=== PATIENT | male | born 1975 | race American Indian/Alaskan Native ===

== ENCOUNTER 2017-04-09 18:00 | Day surgery (SDC) | payer OTHER ==
--- NOTE | 2017-04-09 17:22 | Emergency Department Report ---
HPI - General Chief Complaint: Medical Clearance Time Seen by Provider: 04/09/17 17:04 - HPI HPI: 42-year-old male presents to the emergency Department from the office of his bariatric surgeon, Dr. Wolf, in order to go to the operating room to reverse or fix his lap band surgery. The patient has been dealing with a few weeks of progressively worsening abdominal discomfort, nausea, vomiting. His point where he cannot keep down any food or liquid. Apparently the patient went to see Dr Wolf today and had an x-ray done and an evaluation and was found to have the lap band out of place. Patient has history of hypertension. He denies any fever, chest pain, shortness of breath. He did not take anything and was not given anything for his symptoms prior to presentation. ED Past Medical Hx - Past Medical History Hx Hypertension: Yes Additional medical history: HX OF PE - Surgical History Hx Cholecystectomy: Yes Additional Surgical History: LAP BAND ANKLE - Social History Smoking Status: Never Smoker Substance Use Type: Alcohol ED Review of Systems ROS: Stated complaint: PRE OP EVALUATION Other details as noted in HPI Comment: All other systems reviewed and negative Constitutional: denies: chills, fever Eyes: denies: eye pain, eye discharge, vision change ENT: denies: ear pain, throat pain Respiratory: denies: cough, shortness of breath, wheezing Cardiovascular: denies: chest pain, palpitations Gastrointestinal: abdominal pain, nausea, vomiting Genitourinary: denies: urgency, dysuria Musculoskeletal: denies: back pain, joint swelling, arthralgia Skin: denies: rash, lesions Neurological: denies: headache, weakness, paresthesias Physical Exam - Physical Exam Physical Exam: GENERAL: The patient is well-developed well-nourished. HENT: Normocephalic. Atraumatic. Patient has moist mucous membranes. EYES: Extraocular motions are intact. Pupils equal reactive to light bilaterally. NECK: Supple. Trachea is midline. CHEST/LUNGS: Clear to auscultation. There is no respiratory distress noted. HEART/CARDIOVASCULAR: Regular. There is no tachycardia. There is no murmur. ABDOMEN: Abdomen is soft. No tenderness to palpation. No guarding. Patient has normal bowel sounds. Obese habitus. SKIN: Skin is warm and dry. NEURO: The patient is awake, alert, and oriented. The patient is cooperative. The patient has no focal neurologic deficits. The patient has normal speech. MUSCULOSKELETAL: There is no tenderness or deformity. There is no limitation range of motion. There is no evidence of acute injury. ED Course - Consultations Consultation #1: 04/09/17 17:[address] Wolf who plans to take him to the operating room and then will either discharge him postop or potentially will keep him overnight to his service. He agrees with the CBC and BMP and IV fluid but otherwise does not require anything else for a preop workup. ED Medical Decision Making - Lab Data Result diagrams: 04/09/17 17:15 04/09/17 17:15 - Medical Decision Making The CBC and metabolic panel are unremarkable. Vital signs stable. The patient is going to the operating room now. Critical Care Time: No Critical care attestation.: If time is entered above; I have spent that time in minutes in the direct care of this critically ill patient, excluding procedure time. ED Disposition Clinical Impression: Pre-op evaluation Nausea & vomiting Qualifiers: Vomiting type: unspecified Vomiting Intractability: non-intractable Qualified Code(s): R11.2 - Nausea with vomiting, unspecified Abdominal pain Qualifiers: Abdominal location: unspecified location Qualified Code(s): R10.9 - Unspecified abdominal pain Disposition: 09 OP ADMIT IP TO THIS HOSP Is pt being admited?: Yes Condition: Stable Referrals: PRIMARY CARE, [Primary Care Provider] - 3-5 Days Time of Disposition: 17:58
[2017-04-09 17:45] LABS: BUN/Creatinine Ratio 15; Blood Urea Nitrogen 18 mg/dL (9-20); Calcium 9.2 mg/dL (8.4-10.2); Hematocrit 37.7 % (35.5-45.6); Hemoglobin 12.7 gm/dl (11.8-15.2); Hemolysis Index 6; Mean Corpuscular HGB Conc 34 % (32-34); Mean Corpuscular Hemoglobin 32 pg (28-32); Mean Corpuscular Volume 94 fl (84-94); Platelet Count 217 K/mm3 (140-440); Red Blood Count 4.02 M/mm3 (3.65-5.03); Red Cell Distribution Width 12.9 % (13.2-15.2)
[~2017-04-09 18:00] MED LIST: DILAUDID ONE; DIPRIVAN 10 MG/ML IV ONE; NACL 0.9% 1000 ML 1,000 ML IV ONE; QUELICIN ONE; XYLOCAINE MPF 2% ONE; ZEMURON IV ONE
[2017-04-09] MEDS ORDERED: PEPCID IV ONE (18:08)
[2017-04-09] MEDS ORDERED: REGLAN ONE (18:09)
--- NOTE | 2017-04-09 18:23 | Anesthesia Consultation ---
Anesthesia Consult and Med Hx Date of service: 04/09/17 - Airway Anesthetic Teeth Evaluation: Good ROM Head & Neck: Adequate Mental/Hyoid Distance: Adequate Mallampati Class: Class III Intubation Access Assessment: Possibly Difficult - Pulmonary Exam CTA: Yes - Cardiac Exam Cardiac Exam: RRR - Pre-Operative Health Status ASA Pre-Surgery Classification: ASA3 Proposed Anesthetic Plan: General - Pulmonary Hx Smoking: Yes - Cardiovascular System Hx Hypertension: Yes
--- NOTE | 2017-04-09 18:23 | Anesthesia Day of Surgery ---
Anesthesia Day of Surgery - Day of Surgery Patient Examined: Yes Patient H&P Reviewed: Yes Patient is NPO: Yes
[2017-04-09] MEDS ORDERED: ZOFRAN IV PRN (18:25)
[2017-04-09] MEDS ORDERED: SUBLIMAZE IV PRN (18:25)
[2017-04-09] MEDS ORDERED: ANCEF/STERILE WATER 2 GM/20 ML 2 GM/20 ML SYRINGE IV ONE (18:49)
[2017-04-09] MEDS ORDERED: ePHEDrine SULFATE ONE (18:56)
[2017-04-09] MEDS ORDERED: XYLOCAINE 1% MPF 5 mL ONE ×2 (19:11→19:13)
[2017-04-09] MEDS ORDERED: MARCAINE 0.5% INFILTRATI ONE (19:11)
[2017-04-09] MEDS ORDERED: ROBINUL ONE ×2 (19:19→19:20)
[2017-04-09] MEDS ORDERED: NEOSTIGMINE ONE (19:19)
[2017-04-09] MEDS ORDERED: ZOFRAN ONE (19:19)
[2017-04-09] MEDS ORDERED: NACL 0.9% 1000 ML 1,000 ML ONE (19:25)
[2017-04-09] MEDS ORDERED: PERCOCET 5/325 PO PRN (21:02)
--- NOTE | 2017-04-09 22:03 | Operative Report ---
PREOPERATIVE DIAGNOSIS: Slipped lap band. POSTOPERATIVE DIAGNOSIS: Slipped lap band. PROCEDURE: Lap band removal. SURGEON: Jonh Wolf MD MOBILE PET GROOMER: None. ANESTHESIA: General. ESTIMATED BLOOD LOSS: Minimal. COMPLICATIONS: None. DRAINS: None. SPECIMEN: None. The patient tolerated the procedure well. FINDINGS: Obvious slipped lap band removed without difficulty. INDICATION: A 42-year-old male with obvious slipped lap band and upper GI here for lap band removal. DESCRIPTION OF PROCEDURE: The patient was taken to the OR and placed supine on the operating table. Once general anesthesia obtained, anterior abdomen was prepped and draped in sterile fashion. A left upper quadrant 0.5 cm incision was made. Through the incision, Veress needle was placed in the peritoneal cavity. CO2 was used to inflate the peritoneal cavity and 5 more trocars placed by Dr. Stewart. Visualization of peritoneal cavity revealed adhesions through the abdominal wall overlying the port. A separate epigastric incision was made for a 5 mm trocar to dissect off all the omental adhesions to expose the port area. After this was completed, a right upper quadrant 5 mm trocar was placed and the epigastric trocar was removed and placed in Diallo retractor to elevate the left lobe of the liver as well as hiatus area. The port site incision was then incised. Incision was taken to subcutaneous tissue to the port. The port was dissected from the surrounding soft tissue with the help of electrocautery, the ____ suture attachments were transected and the tubing was brought in the operative field. Tubing was then transected. Through the port site insertion of the tubing, a 10 mm trocar was placed. After ____ of the tubing was followed to the buckle of the band, obvious slip was noted probably half the stomach was above the band. The buckle was identified. It was unbuckled and removed from the tunnel. No evidence of ischemia was noted and no injury to the stomach was noted. The tubing of the band was then brought through the 10 mm trocar site. After adequate hemostasis, all retractors removed, all ports removed. The 10 mm trocar site incision was closed with 0 Vicryl in [id number] fashion. Subcutaneous tissue was approximated with 2-0 Vicryl. All skin incisions closed in subcuticular fashion. Dermabond was placed on incision. The patient tolerated the procedure well. JOB# [id number] NILAM/AMRITA
[2017-04-09 22:41] VITALS: BP 133/74
== END 2017-04-09 22:00 | disposition home or self-care (01) ==
LOC: OR 18:00
PROVIDERS: ATTEND Surgery
DX: K95.09 Other complications of gastric band procedure (principal); I10 Essential (primary) hypertension; F17.200 Nicotine dependence, unspecified, uncomplicated; Y83.2 Surgical operation with anastomosis, bypass or graft as the cause of abnormal reaction of the patient, or of later complication, without mention of misadventure at the time of the procedure
CPT/HCPCS: 36415; 43774; 80048; 85027; 96360; 96361; 99282; J0330; J0690; J1170; J2704; J2710; J2765; J7030; J2405